=== PATIENT | female | born 1975 | race Caucasian/White ===

== ENCOUNTER 2024-09-16 06:25 | Day surgery (SDC) | payer BC, SELFPAY | END 2024-09-16 09:28 | disposition home or self-care (01) | LOC: GI 06:25 | PROVIDERS: ATTENDING PHYSICIAN Internal Medicine | DX: Z12.11 Encounter for screening for malignant neoplasm of colon (principal); K64.4 Residual hemorrhoidal skin tags; K62.89 Other specified diseases of anus and rectum; D12.2 Benign neoplasm of ascending colon; D12.3 Benign neoplasm of transverse colon; K62.1 Rectal polyp | CPT/HCPCS: 45385; 45380; 88305 ==

== ENCOUNTER → 2025-05-26 15:01 | Outpatient (REF) | payer BC, SELFPAY ==
[2025-05-26 16:13] LABS: Hematocrit 35.2 % (37.0-47.0); Hemoglobin 11.9 g/dL (12.0-16.0); Mean Corp Hgb Conc. 33.8 g/dL (33.0-37.0); Mean Corpuscular Volume 93.4 fL (81.0-99.0); Nucleated Red Blood Cells % 0 %; Platelet Count 278 10^3/uL (130-400); Red Cell Dist. Width 12.4 % (11.5-14.5)
[2025-05-26 16:34] LABS: ALT (SGPT) 16 U/L (0-35); AST (SGOT) 22 U/L (14-36); Albumin 4.0 g/dl (3.5-5.0); Alkaline Phosphatase 91 U/L (38-126); Blood Urea Nitrogen 15 mg/dl (7-17); Calcium 9.4 mg/dl (8.4-10.2); Carbon Dioxide 26 mmol/L (22-30); Chloride 105 mmol/L (98-107); Glucose 131 mg/dl (70-99); Potassium 4.3 mmol/L (3.5-5.1); Sodium 136 mmol/L (135-145); Total Protein 7.1 g/dl (6.3-8.2); Uric Acid 2.4 mg/dl (2.5-6.2); eGFR > 60.00
[2025-05-26 16:37] LABS: C-Reactive Protein 78.30 mg/L (0.0-10.00)
[2025-05-26 17:08] LABS: TSH 0.27 uIU/ml (0.47-4.68)
[2025-05-28 17:21] LABS: SSA 52 (Ro)(ENA) Ab, IgG 0 AU/mL (0-40); SSA 60 (Ro)(ENA) Ab, IgG 1 AU/mL (0-40); SSB (La)(ENA) Ab, IgG 0 AU/mL (0-40)
[2025-05-28 20:45] LABS: ANA, IgG Reflex to HEp-2 None Detected (None Detected)
[2025-05-28 20:52] LABS: ds-DNA Ab, IgG Reflex To Titer 5 IU (0-24)
== END ==
LOC: REG 15:01
PROVIDERS: ATTENDING PHYSICIAN Physician Assistant
DX: M25.50 Pain in unspecified joint (principal); M79.10 Myalgia, unspecified site; R53.83 Other fatigue
CPT/HCPCS: 36415; 80053; 84439; 84443; 84550; 85025; 85652; 86038; 86140; 86225; 86235; 86430; 86618

== ENCOUNTER → 2025-06-02 10:10 | Outpatient (REF) | payer BC, SELFPAY ==
[2025-06-02 11:55] LABS: Hematocrit 39.8 % (37.0-47.0); Hemoglobin 13.5 g/dL (12.0-16.0); Mean Corp Hgb Conc. 33.9 g/dL (33.0-37.0); Mean Corpuscular Volume 92.8 fL (81.0-99.0); Nucleated Red Blood Cells % 0 %; Platelet Count 441 10^3/uL (130-400); Red Cell Dist. Width 12.6 % (11.5-14.5)
[2025-06-02 14:09] LABS: ALT (SGPT) 16 U/L (0-35); AST (SGOT) 21 U/L (14-36); Albumin 4.5 g/dl (3.5-5.0); Alkaline Phosphatase 82 U/L (38-126); Blood Urea Nitrogen 20 mg/dl (7-17); Calcium 9.7 mg/dl (8.4-10.2); Carbon Dioxide 31 mmol/L (22-30); Chloride 99 mmol/L (98-107); Glucose 80 mg/dl (70-99); Potassium 4.5 mmol/L (3.5-5.1); Sodium 135 mmol/L (135-145); Total Protein 7.5 g/dl (6.3-8.2)
[2025-06-02 14:57] LABS: C-Reactive Protein 6.70 mg/L (0.0-10.00)
== END ==
LOC: REG 10:10
PROVIDERS: ATTENDING PHYSICIAN Internal Medicine Rheumatology; FAMILY PHYSICIAN Physician Assistant
DX: M25.50 Pain in unspecified joint (principal); Z51.81 Encounter for therapeutic drug level monitoring; R60.9 Edema, unspecified
CPT/HCPCS: 36415; 73110; 73130; 80053; 85025; 85652; 86140; 86618; 87070; 87880